=== PATIENT | female | born 1935 | race Caucasian/White ===

== ENCOUNTER 2022-05-30 09:21 | Emergency (ER) | payer MEDICARE, OTHER | END 2022-05-30 13:27 | disposition home or self-care (01) | LOC: FB.ED 09:21 | DX: S06.5X0A Traumatic subdural hemorrhage without loss of consciousness, initial encounter (principal); S02.2XXA Fracture of nasal bones, initial encounter for closed fracture; E78.00 Pure hypercholesterolemia, unspecified; I12.9 Hypertensive chronic kidney disease with stage 1 through stage 4 chronic kidney disease, or unspecified chronic kidney disease; E11.22 Type 2 diabetes mellitus with diabetic chronic kidney disease; N18.9 Chronic kidney disease, unspecified; E03.9 Hypothyroidism, unspecified; Z88.0 Allergy status to penicillin; Z88.2 Allergy status to sulfonamides; Z79.82 Long term (current) use of aspirin; Z79.899 Other long term (current) drug therapy; Z79.84 Long term (current) use of oral hypoglycemic drugs; W18.30XA Fall on same level, unspecified, initial encounter | CPT/HCPCS: 70450; 70486; 73110-LT; 73130-RT; 99284 ==

== ENCOUNTER 2025-01-30 13:57 | Emergency (ER) | payer MEDICARE, OTHER ==
[2025-01-30 14:32] LABS: MEAN PLATELET VOLUME 7.5 fL (7.1-12.4); PLATELET COUNT,PLT 303 x10(3)uL (151-488); RED BLOOD CELL COUNT 4.13 x10(6)uL (3.60-5.20); RED CELL DISTRIBUTION WIDTH 13.5 % (12.3-16.5); WHITE BLOOD CELL COUNT,WBC 11.2 x10-3/uL (3.0-10.3)
[2025-01-30 14:37] LABS: BLOOD UREA NITROGEN,BUN 21 mg/dL (7-18); CARBON DIOXIDE,CO2 25 mmol/L (21-32); CHLORIDE,CL 101 mmol/L (100-110); CREATININE 1.3 mg/dL (0.55-1.02); EST CRCL DRUG DOSING (CG) 27.46 mL/min; ESTIMATED GFR 39 mL/min (>60); GLUCOSE RANDOM 294 mg/dL (80-116); POTASSIUM,K 4.1 mmol/L (3.5-5.3); SODIUM,NA 137 mmol/L (135-145)
[2025-01-30 14:43] LABS: A/G RATIO 1.2; ALANINE AMINOTRANSFERASE,ALT 26 U/L (12-36); ASPARTATE AMNIOTRANSFERASE,AST 23 IU/L (5-25); BILIRUBIN TOTAL 0.5 mg/dL (0.1-1.3); PROTEIN TOTAL,TP 7.3 g/dL (6.0-8.0)
[2025-01-30 14:49] LABS: LYMPHOCYTES PERCENT MAN 9 % (13-37); MONOCYTES PERCENT MAN 3 % (4-12); SEG NEUTROPHILS PERCENT MAN 88 % (46-82)
== END 2025-01-30 14:23 | disposition home or self-care (01) ==
LOC: FB.ED 13:57
DX: E11.22 Type 2 diabetes mellitus with diabetic chronic kidney disease (principal); E78.00 Pure hypercholesterolemia, unspecified; E03.9 Hypothyroidism, unspecified; I12.9 Hypertensive chronic kidney disease with stage 1 through stage 4 chronic kidney disease, or unspecified chronic kidney disease; N18.9 Chronic kidney disease, unspecified; Z88.0 Allergy status to penicillin; Z88.2 Allergy status to sulfonamides; Z79.899 Other long term (current) drug therapy; Z79.82 Long term (current) use of aspirin; Z79.84 Long term (current) use of oral hypoglycemic drugs
CPT/HCPCS: 36415; 80053; 82947; 85025; 99284

== ENCOUNTER 2025-01-31 14:36 | Emergency (ER) | payer MEDICARE, OTHER ==
[2025-01-31] MEDS ORDERED: Sodium Chloride 0.9% 10 ML Syringe FLUSH PRN (14:53)
[2025-01-31 15:01] LABS: BASOPHILS ABSOLUTE AUTO 0.1 x10-3/uL (0.0-0.1); BASOPHILS PERCENT AUTO 0.6 % (0.2-1.5); EOSINOPHILS ABSOLUTE AUTO 0.0 x10-3/uL (0.0-0.8); EOSINOPHILS PERCENT AUTO 0.1 % (0.6-8.1); LYMPHOCYTES ABSOLUTE AUTO 1.7 x10-3/uL (1.0-4.4); LYMPHOCYTES PERCENT AUTO 13.8 % (18.4-52.1); MEAN PLATELET VOLUME 7.9 fL (7.1-12.4); MONOCYTES ABSOLUTE AUTO 1.2 x10-3/uL (0.3-1.0); MONOCYTES PERCENT AUTO 9.2 % (4.4-15.7); NEUTROPHILS ABSOLUTE AUTO 9.6 x10-3/uL (1.5-6.3); NEUTROPHILS PERCENT AUTO 76.3 % (30.8-76.2); PLATELET COUNT,PLT 276 x10(3)uL (151-488); RED BLOOD CELL COUNT 4.06 x10(6)uL (3.60-5.20); RED CELL DISTRIBUTION WIDTH 13.5 % (12.3-16.5); WHITE BLOOD CELL COUNT,WBC 12.6 x10-3/uL (3.0-10.3)
[2025-01-31 15:04] LABS: BLOOD UREA NITROGEN,BUN 25 mg/dL (7-18); CARBON DIOXIDE,CO2 24 mmol/L (21-32); CHLORIDE,CL 101 mmol/L (100-110); CREATININE 1.5 mg/dL (0.55-1.02); EST CRCL DRUG DOSING (CG) 23.80 mL/min; ESTIMATED GFR 33 mL/min (>60); GLUCOSE RANDOM 207 mg/dL (80-116); POTASSIUM,K 4.2 mmol/L (3.5-5.3); SODIUM,NA 136 mmol/L (135-145)
[2025-01-31 15:07] LABS: INR 1.07 (1.00-1.24)
[2025-01-31 15:10] LABS: A/G RATIO 1.2; ALANINE AMINOTRANSFERASE,ALT 27 U/L (12-36); ASPARTATE AMNIOTRANSFERASE,AST 77 IU/L (5-25); BILIRUBIN TOTAL 0.5 mg/dL (0.1-1.3); PROTEIN TOTAL,TP 7.1 g/dL (6.0-8.0)
[2025-01-31 15:14] LABS: LACTIC ACID 2.3 mmol/L (0.4-2.0)
[2025-01-31] MEDS: Heparin Sodium 5,000 Units/ML Vial IVPUSH ONE (15:41)
[2025-01-31] MEDS: Heparin Sodium/0.45% NaCl 500 ML IV SCH (15:41)
== END 2025-01-31 19:45 ==
LOC: FB.ED 14:36
DX: I21.3 ST elevation (STEMI) myocardial infarction of unspecified site (principal); E78.00 Pure hypercholesterolemia, unspecified; I12.9 Hypertensive chronic kidney disease with stage 1 through stage 4 chronic kidney disease, or unspecified chronic kidney disease; N18.9 Chronic kidney disease, unspecified; E03.9 Hypothyroidism, unspecified; E11.22 Type 2 diabetes mellitus with diabetic chronic kidney disease; Z88.0 Allergy status to penicillin; Z88.2 Allergy status to sulfonamides; Z79.82 Long term (current) use of aspirin; Z79.899 Other long term (current) drug therapy; Z79.890 Hormone replacement therapy; Z79.84 Long term (current) use of oral hypoglycemic drugs
CPT/HCPCS: 36415; 71045; 80053; 82947; 83605; 83735; 84484; 85025; 85610; 85730; 93005; 96361; 96365; 96366; 96375; 96376; 99285-25; A9270-GY; J1644; J2270; J7030